=== PATIENT | male | born 1995 | race American Indian/Alaskan Native ===

== ENCOUNTER 2017-02-19 14:31 | Emergency (ER) | payer SELFPAY ==
[2017-02-19] MEDS ORDERED: REGLAN IV ONE (16:54)
[2017-02-19] MEDS ORDERED: BENADRYL IV ONE (16:54)
[2017-02-19] MEDS ORDERED: TORADOL IV ONE (16:56)
--- NOTE | 2017-02-19 18:44 | Emergency Department Report ---
Entered by CHAY ZAIDI, acting as scribe for FREDI CHAPA PA. ED Headache HPI - General Chief Complaint: Headache Stated Complaint: HEADACHE Source: patient Exam Limitations: no limitations - History of Present Illness Initial Comments: 21 year old male with no significant PMHx presents to the ED c/o an acute intermittent headache that began 2 weeks ago, worsening today. Patient states that the headache is behind his left eye and states it "feels like my eye is going to pop out". Rates pain a 10/10 in severity and describes the pain as pressure in quality. Pain worsens with standing and is relieved with nothing. Associated symptoms include nausea and decreased appetite, but he denies any head injury, vomiting, fever, chills, numbness, tingling, generalized weakness, blurry vision, ear pain, and sensitivity to light exposure. He reports taking Excedrin with no relief. Notes Hx of headaches, but this acute headache episode is worse. Allergic to amoxicillin. Timing/Duration: other (2 weeks) Quality: moderate, constant, pressure Head Injury Location: frontal (behind left eye) Recent Head Trauma: no recent headache/trauma Modifying Factors: improves with: other (worsens with standing). worse with: exposure to light Associated Symptoms: facial pain (left side around eye), nausea/vomiting ( denies vomiting), other (nausea and decreased appetite, but denies blurry vision and sensitivity to light exposure). denies: confusion, fever/chills, numbness in legs/feet, rash, stiff neck, vision changes, weakness (generalized) Allergies/Adverse Reactions: Allergies amoxicillin Allergy (Verified 05/27/15 00:47) Unknown Home Medications: Ambulatory Orders Cyclobenzaprine [Flexeril] 10 mg PO TID PRN #20 tablet 12/12/15 Naproxen [Naprosyn TAB] 500 mg PO BID PRN #20 tablet 12/12/15 Ibuprofen [Motrin 600 MG tab] 600 mg PO Q8H PRN #30 tablet 02/19/17 ED Review of Systems Comment: All other systems reviewed and negative Constitutional: denies: chills, fever, weakness (generalized), other (tingling) Eyes: eye pain (left eye). denies: eye discharge, vision change ENT: denies: ear pain, other (ear drainage) Respiratory: denies: cough, orthopnea, shortness of breath, SOB with exertion, SOB at rest Endocrine: other (decreased appetite) Gastrointestinal: nausea. denies: vomiting Musculoskeletal: other (left facial pain around eye, but denies neck stiffness) Skin: denies: rash Neurological: headache (behind left eye). denies: numbness, confusion ED Past Medical Hx - Social History Smoking Status: Current Every Day Smoker Substance Use Type: Alcohol, Marijuana - Medications Home Medications: Home Medications Medication Instructions Recorded Confirmed Last Taken Type Cyclobenzaprine [Flexeril] 10 mg PO TID PRN #20 tablet 12/12/15 Unknown Rx Naproxen [Naprosyn TAB] 500 mg PO BID PRN #20 tablet 12/12/15 Unknown Rx Ibuprofen [Motrin 600 MG tab] 600 mg PO Q8H PRN #30 tablet 02/19/17 Unknown Rx ED Physical Exam - General Limitations: No Limitations General appearance: alert, in no apparent distress - Head Head exam: Present: atraumatic, normocephalic - Eye Eye exam: Present: PERRL, EOMI. Absent: scleral icterus, conjunctival injection Pupils: Present: normal accommodation - ENT ENT exam: Present: normal exam, mucous membranes moist. Absent: TM's normal bilaterally (bilateral Cerumen Impaction) - Neck Neck exam: Present: normal inspection, full ROM. Absent: tenderness, lymphadenopathy - Respiratory Respiratory exam: Present: normal lung sounds bilaterally. Absent: respiratory distress, wheezes, rales, rhonchi - Cardiovascular Cardiovascular Exam: Present: regular rate, normal rhythm - GI/Abdominal GI/Abdominal exam: Present: soft. Absent: distended, tenderness - Extremities Exam Extremities exam: Present: normal inspection, full ROM - Back Exam Back exam: Present: normal inspection, full ROM. Absent: tenderness - Neurological Exam Neurological exam: Present: alert, oriented X3, CN II-XII intact, normal gait, reflexes normal. Absent: motor sensory deficit - Expanded Neurological Exam Expanded Patient oriented to: Present: person, place, time Speech: Present: fluid speech Cranial nerves: EOM's Intact: Normal, Tongue Deviation: Normal, Facial Sensation : Normal, Facial Palsy with Forehead Movement: Normal, Facial Palsy without Forehead Movement: Normal Ataxia: Absent: yes Cerebellar function: Finger to Nose: Normal, Heel to High: Normal Motor strength exam: RUE: 5, LUE: 5, RLE: 5, LLE: 5 DTR: bicep (R): 2+, bicep (L): 2+, tricep (R): 2+, tricep (L): 2+, knee (R): 2+ , knee (L): 2+, ankle (R): 2+, ankle (L): 2+ Best Eye Response ([place]): (4) open spontaneously Best Motor Response (Jacob): (6) obeys commands Best Verbal Response ([place]): (5) oriented (+) [place] Total: 15 - Psychiatric Psychiatric exam: Present: normal affect, normal mood - Skin Skin exam: Present: warm, dry, intact. Absent: rash ED Course Vital Signs 02/19/17 02/19/17 15:17 17:52 Temperature 98.5 F Pulse Rate 85 Respiratory 16 14 Rate Blood Pressure 112/59 - Reevaluation(s) Reevaluation #1: 02/19/17 18:37 Patient reports he feels much better after treatment. 02/19/17 18:37 ED Medical Decision Making - Medical Decision Making Patient was evaluated in fast track area of ED by this provider. Patient presented with an acute headache that began 2 weeks ago. In the ED, patient will be given IV medications that include Reglan, Benadryl, and Toradol. Patient is in no acute distress at this time and will be discharged home. Patient instructed to follow up with PCP if symptoms persist. He is encouraged to return to the emergency room for any worsening symptoms. ED Disposition Clinical Impression: Headache around the eyes Disposition: DISCHARGED TO HOME OR SELFCARE Is pt being admited?: No Does the pt Need Aspirin: No Condition: Stable Instructions: Acute Headache (ED) Additional Instructions: Take pain medication as prescribed. Please follow with the primary care provider for further evaluation. Prescriptions: Ibuprofen [Motrin 600 MG tab] 600 mg PO Q8H PRN #30 tablet PRN Reason: Pain Referrals: PRIMARY CARE, [Primary Care Provider] - 3-5 Days [facility] [Provider Group] - 3-5 Days Forms: Work/School Release Form(ED) This documentation as recorded by the DYAN torres RYAN,accurately reflects the service I personally performed and the decisions made by ,FREDI CHAPA PA.
[2017-02-19 18:51] VITALS: BP 118/62
== END 2017-02-19 18:50 | disposition home or self-care (01) ==
LOC: ED 14:31
DX: R51 Headache (principal); F12.90 Cannabis use, unspecified, uncomplicated; F17.200 Nicotine dependence, unspecified, uncomplicated; Z88.1 Allergy status to other antibiotic agents
CPT/HCPCS: 96374; 96375; 99282; J1200; J1885; J2765